=== PATIENT | female | born 1965 | race Asian ===

== ENCOUNTER 2024-05-30 18:09 | Inpatient (IN) | payer MEDICAID, OTHER ==
[~2024-05-30] VITALS: Ht 162.6 cm; Wt 52.2 kg
[2024-05-30] MEDS ORDERED: DEXTROSE 50% WATER 50ML SYRINGE IV ONE (18:30)
[2024-05-30 19:19] LABS: BASOPHILS % 0.2 % (0.0-2.0); EOSINOPHILS % 0.2 % (0.0-5.0); HEMATOCRIT. 31.9 % (36.0-48.0); HEMOGLOBIN. 10.5 g/dL (12.0-16.0); LYMPHOCYTES % 3.5 % (20.0-50.0); MEAN CORPUSCULAR HEMOGLOBIN 28.3 pg (28.0-32.0); MEAN CORPUSCULAR VOLUME 85.7 fL (81.0-99.0); MEAN PLATELET VOLUME 7.6 fl (7.4-10.4); MONOCYTES % 3.7 % (2.0-8.0); NEUTROPHILS % 92.4 % (40.0-76.0); PLATELET 109 x1000/uL (130-400); RED BLOOD CELL COUNT 3.72 mill/uL (4.2-5.4); RED CELL DISTRIBUTION WIDTH 17.3 % (11.6-14.6); WHITE BLOOD COUNT 13.7 x1000/uL (4.5-11.0)
[2024-05-30 19:21] LABS: DIFFERENTIAL COMMENT 1
[2024-05-30] MEDS: PIPERACILLIN/TAZO 3.375G/50ML 50 ML IV ONE (19:25)
[2024-05-30 19:26] LABS: CHLORIDE 100 mEq/L (98-107); POTASSIUM 3.8 mEq/L (3.5-5.1); SODIUM 137 mEq/L (136-145)
[2024-05-30 19:27] LABS: CALCIUM 9.2 mg/dL (8.7-10.4); CARBON DIOXIDE 27 mEq/L (21-32)
[2024-05-30 19:32] LABS: CREATININE 3.9 mg/dL (0.6-1.0); GLUCOSE 135 mg/dL (70-105); UREA NITROGEN BLOOD 32 mg/dL (9-23)
[2024-05-30 19:33] LABS: TROPONIN I HIGH SENSITIVITY 31 ng/L (3.0-34)
[2024-05-30 19:34] LABS: ALANINE AMINOTRANSFERASE 30 IU/L (10-49); ALBUMIN 4.3 g/dL (3.2-4.8); ASPARTATE AMINOTRANSFERASE 38 IU/L (<34); BILIRUBIN DIRECT 0.1 mg/dL (<=3.0); BILIRUBIN TOTAL 0.3 mg/dL (0.1-1.0); CREATINE KINASE 79 IU/L (34-145); PROTEIN TOTAL 7.1 g/dL (6.0-8.3)
[2024-05-30] MEDS: SODIUM CHLORIDE 0.9% 1000ML BAG (SEPSIS BOLUS) IV ONE (19:35)
[2024-05-30 19:54] LABS: PROTHROMBIN TIME 10.8 sec (9.6-11.0)
[2024-05-30] MEDS: VANCOMYCIN 1G PREMIX 200 ML IV ONE (20:59)
[2024-05-30] MEDS: DEXTROSE 50% WATER 50ML SYRINGE IV NR (21:17)
[2024-05-30] MEDS ORDERED: DEXTROSE 50% WATER 50ML SYRINGE IV PRN (23:30)
[2024-05-30] MEDS ORDERED: DOCUSATE SODIUM 100MG CAPSULE PO PRN (23:30)
[2024-05-30] MEDS ORDERED: IPRATROPIUM/ALBUTEROL 0.5-3(2.5)MG/3ML NEB HHN PRN (23:30)
[2024-05-31 00:30] LABS: PHOSPHORUS 2.5 mg/dL (2.5-4.9)
[2024-05-31] MEDS: MAGNESIUM 2 G PREMIX 50 ML IV NR (01:45)
[2024-05-31] MEDS ORDERED: HYDRALAZINE 20MG/ML VIAL IV PRN (01:45)
[2024-05-31] MEDS: CEFTRIAXONE 1GM/50ML 50 ML IV SCH (03:55)
[2024-05-31] MEDS: PHENYTOIN SODIUM EXTENDED 100MG CAPSULE PO SCH (06:38)
[2024-05-31] MEDS: BLOOD SUGAR DIAGNOSTIC STRIP TEST SCH (06:38)
[2024-05-31] MEDS: DEXT 5%/0.45% NACL 1000ML 1,000 ML IV SCH (06:38)
[2024-05-31] MEDS: INSULIN LISPRO 100 UNITS/ML SUBCUT SCH (06:39)
[2024-05-31 06:42] LABS: POTASSIUM 3.9 mEq/L (3.5-5.1)
[2024-05-31 06:43] LABS: CALCIUM 8.4 mg/dL (8.7-10.4)
[2024-05-31 06:44] LABS: CREATINE KINASE MB FRACTION 2.7 ng/mL (0.5-3.6)
[2024-05-31 06:47] LABS: T4 FREE 0.72 ng/dL (0.89-1.76)
[2024-05-31 06:48] LABS: CREATININE 4.6 mg/dL (0.6-1.0); THYROID STIMULATING HORMONE 2.37 uIU/mL (0.55-4.78)
[2024-05-31 06:54] LABS: HEMATOCRIT. 32.8 % (36.0-48.0); HEMOGLOBIN. 10.6 g/dL (12.0-16.0); MEAN CORPUSCULAR HEMOGLOBIN 27.8 pg (28.0-32.0); MEAN CORPUSCULAR HGB CONC 32.3 g/dL (31.0-37.0); MEAN CORPUSCULAR VOLUME 86.1 fL (81.0-99.0); MEAN PLATELET VOLUME 7.9 fl (7.4-10.4); PLATELET 96 x1000/uL (130-400); RED BLOOD CELL COUNT 3.81 mill/uL (4.2-5.4); RED CELL DISTRIBUTION WIDTH 17.3 % (11.6-14.6); WHITE BLOOD COUNT 16.5 x1000/uL (4.5-11.0)
[2024-05-31 06:59] LABS: DIFFERENTIAL COMMENT 1
[2024-05-31] MEDS ORDERED: LEVETIRACETAM 1,000MG in NACL 100ML PREMIX IV SCH (09:00)
[2024-05-31] MEDS: FOLIC ACID 1MG TABLET PO SCH (09:52)
[2024-05-31] MEDS: OLANZAPINE 5MG TABLET PO SCH (09:52)
[2024-05-31] MEDS: AMLODIPINE 10MG TABLET PO SCH (09:52)
[2024-05-31] MEDS: LEVETIRACETAM 1000MG PREMIX 100 ML IV SCH (09:57)
[2024-05-31] MEDS: DEXTROSE 50% WATER 50ML SYRINGE IV SCH (10:18)
[2024-05-31 12:12] LABS: HEPATITIS B SURFACE ANTIGEN NEGATIVE (Negative)
[2024-05-31 12:33] LABS: HEPATITIS A AB IGM NEGATIVE (Negative); HEPATITIS B CORE AB IGM NEGATIVE (Negative)
[2024-05-31 12:34] LABS: HEPATITIS C AB REACTIVE (Pos) (Negative)
[2024-05-31 15:29] LABS: BG BASE EXCESS -2.6 mmol/L (-2.0-3.0); BG CARBOXYHEMOGLOBIN 1.1 % (0.5-1.5); BG DEOXYHEMOGLOBIN 1.7 % (0.0-5.0); BG FRACTION INSPIRED OXYGEN 32; BG HCO3 ACT 22.6 mmol/L (21.0-28.0); BG METHEMOGLOBIN 0.3 % (0.5-1.5); BG OXYGEN SATURATION 98.3 % (94.0-98.0); BG OXYHEMOGLOBIN 96.9 % (94.0-98.0); BG PCO2 40.7 mmHg (32.0-45.0); BG PH 7.362 (7.350-7.450); BG PO2 121.4 mmHg (83.0-108.0); BG SAMPLE SITE RIGHT RADIAL; BG TOTAL HEMOGLOBIN 10.7 g/dL (12.0-16.0); BG VENT MODE NASAL CANNULA
[2024-05-31] MEDS: DEXT 10% WATER 1,000 ML IV SCH (15:47)
[2024-05-31 16:23] LABS: ANISOCYTOSIS 1+; PLATELET ESTIMATE DECREASED
[2024-05-31 19:22] LABS: CREATINE KINASE MB FRACTION 5.2 ng/mL (0.5-3.6)
[2024-05-31] MEDS: ATORVASTATIN CALCIUM 40MG TABLET PO SCH (21:00)
[2024-05-31 23:30] VITALS: PULSE 81; RESP 24
[2024-05-31 23:40] VITALS: BP 150/57; PULSE 79; RESP 21; TEMP 37.39188; O2SAT 98
[2024-06-01] VITALS (20 sets, daily range): BP systolic 97–165; BP diastolic 52–76; PULSE 66–84; RESP 15–23; TEMP 36.72516–37.94748; O2SAT 93–100
[2024-06-01] MEDS: LEVETIRACETAM 1000MG PREMIX 100 ML IV SCH (01:31)
[2024-06-01] MEDS: CEFTRIAXONE 1GM/50ML 50 ML IV SCH (01:31)
[2024-06-01] MEDS: PANTOPRAZOLE SODIUM 40 MG/VIAL IV SCH (09:21)
[2024-06-01] MEDS: ACETAMINOPHEN 325MG TABLET PO PRN (11:44)
[2024-06-01] MEDS: DEXT 10% WATER 1,000 ML IV SCH (13:00)
[2024-06-02] VITALS (12 sets, daily range): BP systolic 93–145; BP diastolic 49–94; PULSE 64–86; RESP 12–22; TEMP 36.6696–37.89192; O2SAT 88–100
[2024-06-02] MEDS: ENOXAPARIN 30MG/0.3ML SYR SUBCUT SCH (01:16)
[2024-06-02] MEDS: VANCOMYCIN 500MG/100ML IV NR (01:17)
[2024-06-02] MEDS: POLYETHYLENE GLYCOL 3350 (17GM) 1 DOSE PACK PO SCH (09:45)
[2024-06-02] MEDS ORDERED: TETRACAINE/BENZOCAINE/BUTAMBEN 20 GM SPRAY MM ONE (10:12)
[2024-06-02] MEDS ORDERED: LIDOCAINE 2% 6ML GLYDO MM ONE (10:12)
[2024-06-02] MEDS ORDERED: FENTANYL CITRATE/PF 50MCG/ML 2ML VIAL ONE (10:13)
[2024-06-02] MEDS ORDERED: MIDAZOLAM HCL 2 MG/2 ML VIAL ONE (10:14)
[2024-06-02] MEDS ORDERED: DIPHENHYDRAMINE 50MG/ML VIAL ONE (10:26)
[2024-06-02] MEDS: CEFAZOLIN 1000MG PREMIX 50 ML IV SCH (16:54)
[2024-06-02] MEDS: HYDROCODONE/ACETAMINOPHEN 5/325MG TABLET PO NR (22:10)
[2024-06-03] VITALS (10 sets, daily range): BP systolic 102–174; BP diastolic 54–88; PULSE 66–75; RESP 12–27; TEMP 36.28068–37.05852; O2SAT 92–100
[2024-06-03 06:54] LABS: T4 FREE 0.65 ng/dL (0.89-1.76)
[2024-06-03 06:56] LABS: THYROID STIMULATING HORMONE 3.35 uIU/mL (0.55-4.78)
[2024-06-03 10:45] LABS: HEMATOCRIT 25.3 % (36.0-48.0); HEMOGLOBIN 8.1 g/dL (12.0-16.0); MEAN CORPUSCULAR HEMOGLOBIN 28.4 pg (28.0-32.0); MEAN CORPUSCULAR VOLUME 88.6 fL (81.0-99.0); PLATELET 121 x1000/uL (130-400); RED BLOOD CELL COUNT 2.86 mill/uL (4.2-5.4); RED CELL DISTRIBUTION WIDTH 17.1 % (11.6-14.6); WHITE BLOOD COUNT 7.2 x1000/uL (4.5-11.0)
[2024-06-03 11:52] LABS: CHLORIDE 100 mEq/L (98-107); POTASSIUM 4.6 mEq/L (3.5-5.1); SODIUM 135 mEq/L (136-145)
[2024-06-03 11:53] LABS: CARBON DIOXIDE 22 mEq/L (21-32)
[2024-06-03 11:55] LABS: CALCIUM 7.1 mg/dL (8.7-10.4)
[2024-06-03 11:59] LABS: GLUCOSE 203 mg/dL (70-105)
[2024-06-03 12:00] LABS: UREA NITROGEN BLOOD 49 mg/dL (9-23)
[2024-06-03 12:07] LABS: CREATININE 6.1 mg/dL (0.6-1.0)
[2024-06-04] VITALS (12 sets, daily range): BP systolic 119–176; BP diastolic 53–90; PULSE 66–87; RESP 15–28; TEMP 36.3918–37.16964; O2SAT 92–99
[2024-06-04] MEDS ORDERED: LEVETIRACETAM 250MG TABLET PO SCH (14:00)
[2024-06-04] MEDS ORDERED: LEVETIRACETAM 500MG TABLET PO SCH (16:00)
[2024-06-04] MEDS ORDERED: PANTOPRAZOLE 40MG DR TABLET PO SCH (16:00)
== END 2024-06-04 18:44 | DRG 720 ==
LOC: ER 18:09 → 5WST 21:20 → EDBEDREQ 21:22 → 5EST 05-31 23:07
PROVIDERS: ADMIT Preventive Medicine Clinical Informatics; ATTEND Preventive Medicine Clinical Informatics
PROC: 02H633Z Insertion of Infusion Device into Right Atrium, Percutaneous Approach (ICD-10-PCS; 2024-05-30)
PROC: B548ZZA Ultrasonography of Superior Vena Cava, Guidance (ICD-10-PCS; 2024-05-30)
PROC: 5A1D70Z Performance of Urinary Filtration, Intermittent, Less than 6 Hours Per Day (ICD-10-PCS; 2024-06-01)
PROC: B24BZZ4 Ultrasonography of Heart with Aorta, Transesophageal (ICD-10-PCS; principal; 2024-06-02)
PROC: 5A1D70Z Performance of Urinary Filtration, Intermittent, Less than 6 Hours Per Day (ICD-10-PCS; 2024-06-04)
DX: A41.02 Sepsis due to Methicillin resistant Staphylococcus aureus (principal); J96.01 Acute respiratory failure with hypoxia; G92.8 Other toxic encephalopathy; I13.2 Hypertensive heart and chronic kidney disease with heart failure and with stage 5 chronic kidney disease, or end stage renal disease; D69.6 Thrombocytopenia, unspecified; E11.649 Type 2 diabetes mellitus with hypoglycemia without coma; N18.6 End stage renal disease; E11.22 Type 2 diabetes mellitus with diabetic chronic kidney disease; I69.351 Hemiplegia and hemiparesis following cerebral infarction affecting right dominant side; R65.20 Severe sepsis without septic shock; E83.42 Hypomagnesemia; G40.909 Epilepsy, unspecified, not intractable, without status epilepticus; G89.29 Other chronic pain; I50.9 Heart failure, unspecified; J44.9 Chronic obstructive pulmonary disease, unspecified; K59.00 Constipation, unspecified; I15.8 Other secondary hypertension; G50.8 Other disorders of trigeminal nerve; M54.2 Cervicalgia; E78.00 Pure hypercholesterolemia, unspecified; D64.9 Anemia, unspecified; Z99.2 Dependence on renal dialysis; Z79.4 Long term (current) use of insulin; Z88.2 Allergy status to sulfonamides; Z59.82 Transportation insecurity; Z51.5 Encounter for palliative care; Z90.49 Acquired absence of other specified parts of digestive tract
CPT/HCPCS: 36415; 36600; 71045; 80048; 80061; 80076; 80202; 82375; 82533; 82550; 82553; 82805; 82962; 83036; 83605; 83735; 83880; 84100; 84145; 84439; 84443; 84484; 84681; 85025; 85027; 86705; 86709; 87077; 87186; 87340; 90935; 93005; 93312; 97162; 99291; J0690; J0696; J1200; J1650; J1815; J1953; J2250; J2470; J2543; J3010; J3370; J3475; J7030